=== PATIENT | female | born 1950 | race Caucasian/White ===

== ENCOUNTER 2020-04-15 10:57 | Emergency (ER) | payer MEDICARE ==
[~2020-04-15 10:57] MED LIST: AMARYL4 MG PO; ASPIRIN EC81 MG PO; B12; COLESTID 1GM TAB1 GM PO; DIOVAN320 MG PO; FEOSOL325 MG PO; HCTZ25 MG PO; HYDRALAZINE 50M50 MG PO; KEPPRA500 MG PO; LIPITOR40 MG PO; LOPRESSOR50 MG PO; MAG-OXIDE 400M400 MG PO; NEURONTIN100 MG PO; NIACIN ER500 MG PO; NORCO 5-325 TA1 EACH PO; NORVASC5 MG PO; PODIAPN CAPSUL1 EACH PO; PROTONIX 40MG T40 MG PO; WELCHOL625 MG PO; ZESTRIL40 MG PO
[2020-04-15 11:15] LABS: BASOPHIL 0.8 % (0-2); HCT 35.1 % (37.0-47.0); HGB 10.8 g/dl (12.5-16.0); MCH 29.2 pg (25.0-31.0); MCHC 30.8 g/dL (32.0-36.0); MCV 94.9 fL (78.0-100.0); MONOCYTE 4.5 % (0-12); MPV 9.1 fL (6.0-9.5); NEUTROPHIL 81.5 % (41-80); NRBC 0; PLT 244 K/uL (150-400); RDW 14.1 % (11.5-14.0); WBC 5.1 K/uL (4.0-10.5)
[2020-04-15 11:25] LABS: INR 1.08 (0.9-1.2); PROTHROMBIN TIME 13.3 SECONDS (11.4-13.6)
[2020-04-15 11:26] LABS: PTT 37.7 SECONDS (22.2-34.7)
[2020-04-15 11:31] LABS: ALBUMIN 3.2 g/dL (3.4-5.0); BILIRUBIN - TOTAL 0.2 mg/dL (0.2-1.0); BUN/CREAT RATIO (CALC) 9.7 RATIO; CREATININE 3.61 mg/dL (0.51-0.95); GLOBULIN (CALCULATION) 4.4 g/dL; POTASSIUM 5.1 mmol/L (3.5-5.1); TOTAL PROTEIN 7.6 g/dL (6.4-8.2)
[2020-04-15 12:09] LABS: BILIRUBIN NEGATIVE (NEGATIVE); BLOOD NEGATIVE Ery/uL (NEGATIVE); CLARITY CLEAR (CLEAR); COLOR YELLOW (YELLOW); GLUCOSE (U) NORMAL (NORMAL); LEUKOCYTES NEGATIVE Leu/uL (NEGATIVE); NITRITE NEGATIVE (NEGATIVE); PROTEIN 3+ mg/dL (NEGATIVE); SPECIFIC GRAVITY >=1.030 (1.001-1.030); UROBILINOGEN 0.2 mg/dL (0.2-1.0)
[2020-04-15 12:18] LABS: BACTERIA TRACE; SQUAMOUS EPITHELIAL CELLS RARE
== END 2020-04-15 17:30 | disposition other institution (70) ==
LOC: FER 10:57
PROVIDERS: Emergency Medicine
DX: G45.9 Transient cerebral ischemic attack, unspecified (principal); G40.909 Epilepsy, unspecified, not intractable, without status epilepticus; I10 Essential (primary) hypertension; E11.9 Type 2 diabetes mellitus without complications; R29.700 NIHSS score 0; Z20.822 Contact with and (suspected) exposure to COVID-19
CPT/HCPCS: 36415; 70450; 71045; 80053; 81001; 85025; 85610; 85730; 93005; U0002